=== PATIENT | male | born 1945 | race Two or more races ===

== ENCOUNTER 2021-06-21 19:13 | Inpatient (IN) | payer MEDICARE, BC ==
[~2021-06-21] VITALS: Ht 167.6 cm; Wt 68.3 kg
[2021-06-21] MEDS: SODIUM CHLORIDE 0.9% 1,000 ML IV SCH
[2021-06-21] MEDS ORDERED: ACETAMINOPHEN 325MG TABLET PO ONE (19:30)
[2021-06-21] MEDS ORDERED: SODIUM CHLORIDE 0.9% 1000ML BAG (SEPSIS BOLUS) IV ONE (19:30)
[2021-06-21] MEDS ORDERED: CEFTRIAXONE 1 G PREMIX 50 ML IV ONE (19:30)
[2021-06-21 20:40] LABS: BASOPHILS % 0.1 % (0.0-2.0); EOSINOPHILS % 0.2 % (0.0-5.0); HEMATOCRIT. 39.1 % (42.0-52.0); HEMOGLOBIN. 13.6 g/dL (14.0-18.0); MEAN CORPUSCULAR HEMOGLOBIN 34.6 pg (28.0-32.0); MEAN CORPUSCULAR VOLUME 99.7 fL (80.0-94.0); MEAN PLATELET VOLUME 10.1 fl (7.4-10.4); MONOCYTES % 2.5 % (2.0-8.0); NEUTROPHILS % 85.2 % (40.0-76.0); PLATELET 145 x1000/uL (130-400); RED BLOOD CELL COUNT 3.92 mill/uL (4.7-6.1); RED CELL DISTRIBUTION WIDTH 14.5 % (11.6-14.6)
[2021-06-21 20:42] LABS: CHLORIDE 109 mEq/L (98-107)
[2021-06-21 20:47] LABS: INR 0.9; PROTHROMBIN TIME 10.1 sec (9.6-11.0)
[2021-06-21 20:53] LABS: CLARITY URINE CLOUDY (CLEAR); COLOR URINE YELLOW (YELLOW); KETONES URINE NEGATIVE (NEGATIVE); LEUKOCYTE ESTERASE URINE 2+ (NEGATIVE); NITRITE URINE NEGATIVE (NEGATIVE); OCCULT BLOOD URINE 2+ (NEGATIVE); PH URINE 5.5 (4.5-8.0); PROTEIN URINE 1+ (NEGATIVE); SPECIFIC GRAVITY URINE 1.019 (1.005-1.030); UROBILINOGEN URINE 0.2 E.U./dL (0.2-1.0)
[2021-06-21] MEDS ORDERED: ACETAMINOPHEN 325MG TABLET PO PRN (22:00)
[2021-06-21] MEDS ORDERED: ONDANSETRON HCL 4MG/2ML INJ IV PRN (22:00)
[2021-06-22] MEDS: ACETAMINOPHEN 325MG TABLET PO PRN ×2 (05:36→16:06)
[2021-06-22] MEDS: SODIUM CHLORIDE 0.9% 1,000 ML IV SCH ×2 (08:56→17:37)
[2021-06-22 11:00] VITALS: BP 145/51
[2021-06-22 20:00] VITALS: BP 111/57
[2021-06-22] MEDS: CEFTRIAXONE 1,000 MG in DEXTROSE 5% WATER 50 ML IV SCH (21:46)
[2021-06-22] MEDS: ENOXAPARIN 40MG/0.4ML SYR SUBCUT SCH ×2 (21:53)
[2021-06-22] MEDS ORDERED: GUAIFENESIN/DM 600MG/30MG ER TAB 12HR PO PRN (22:15)
[2021-06-23] VITALS: BP 112/61
[2021-06-23] MEDS: ACETAMINOPHEN 325MG TABLET PO PRN ×4 (00:43→23:36)
[2021-06-23 04:00] VITALS: BP 131/56
[2021-06-23 08:00] VITALS: BP 131/53
[2021-06-23 09:31] LABS: BASOPHILS % 0.4 % (0.0-2.0); CHLORIDE 116 mEq/L (98-107); EOSINOPHILS % 3.4 % (0.0-5.0); HEMATOCRIT. 36.5 % (42.0-52.0); HEMOGLOBIN. 12.2 g/dL (14.0-18.0); LYMPHOCYTES % 45.8 % (20.0-50.0); MEAN CORPUSCULAR VOLUME 101.6 fL (80.0-94.0); MEAN PLATELET VOLUME 9.9 fl (7.4-10.4); MONOCYTES % 11.7 % (2.0-8.0); NEUTROPHILS % 38.7 % (40.0-76.0); PLATELET 137 x1000/uL (130-400); RED BLOOD CELL COUNT 3.59 mill/uL (4.7-6.1); RED CELL DISTRIBUTION WIDTH 14.3 % (11.6-14.6)
[2021-06-23 09:39] LABS: PHOSPHORUS 3.1 mg/dL (2.5-4.9)
[2021-06-23] MEDS ORDERED: DIATR MEGLU/DIATRIZOATE SOLN 30ML PO NR (10:45)
[2021-06-23 12:00] VITALS: BP 145/75
[2021-06-23] MEDS: SODIUM CHLORIDE 0.9% 1,000 ML IV SCH (14:00)
[2021-06-23] MEDS ORDERED: IOHEXOL-300 100 ML BOTTLE ONE (15:59)
[2021-06-23 16:00] VITALS: BP 133/82
[2021-06-23 20:00] VITALS: BP 144/68
[2021-06-23] MEDS: ENOXAPARIN 40MG/0.4ML SYR SUBCUT SCH (21:50)
[2021-06-23] MEDS: CEFTRIAXONE 1,000 MG in DEXTROSE 5% WATER 50 ML IV SCH (21:50)
[2021-06-24] VITALS: BP 124/59
[2021-06-24 04:00] VITALS: BP 119/51
[2021-06-24 08:22] VITALS: BP 142/76
[2021-06-24] MEDS: SODIUM CHLORIDE 0.9% 1,000 ML IV SCH (10:00)
[2021-06-24 12:00] VITALS: BP 109/64
[2021-06-24] MEDS ORDERED: AMOX1TAB16 PO (12:25)
[2021-06-24 13:09] VITALS: BP 142/76
== END 2021-06-24 13:56 | disposition home or self-care (01) | DRG 871 ==
LOC: ER 19:13 → MICUSO 21:35 → SUPCPDRO 21:48 → EDBEDREQTM 21:52 → EDBEDREQ 21:52 → EDBEDREQSVC 21:52 → 6EST 06-22 09:50
PROVIDERS: ADMIT Internal Medicine; ATTEND Internal Medicine
DX: A41.51 Sepsis due to Escherichia coli [E. coli] (principal); E43 Unspecified severe protein-calorie malnutrition; E87.2 Acidosis; N12 Tubulo-interstitial nephritis, not specified as acute or chronic; R65.20 Severe sepsis without septic shock; I10 Essential (primary) hypertension; E78.5 Hyperlipidemia, unspecified; N20.0 Calculus of kidney; F17.210 Nicotine dependence, cigarettes, uncomplicated; G89.29 Other chronic pain; M54.5 Low back pain; N28.9 Disorder of kidney and ureter, unspecified; N28.1 Cyst of kidney, acquired; Z86.718 Personal history of other venous thrombosis and embolism; Z87.442 Personal history of urinary calculi; Z98.1 Arthrodesis status; Z82.49 Family history of ischemic heart disease and other diseases of the circulatory system; Q63.1 Lobulated, fused and horseshoe kidney; Z68.24 Body mass index [BMI] 24.0-24.9, adult
CPT/HCPCS: 36415; 71045; 74178; 76770; 80053; 81003; 83605; 83735; 83880; 84100; 84145; 84484; 85025; 87077; 87186; 93005; 99291; J0696; J1650; J7030; J7040; J7060; Q9963; Q9967